=== PATIENT | male | born 1995 | race African-American/Black ===

== ENCOUNTER 2019-01-16 14:01 | Emergency (ER) | payer MEDICAID ==
[~2019-01-16] VITALS: Ht 180.3 cm; Wt 67.5 kg
[2019-01-16 14:10] VITALS: BP 126/58; PULSE 76; RESP 19; Ht 180.3 cm; Wt 67.5 kg
[2019-01-16] MEDS ORDERED: KETOROLAC 60 MG INJ IM STA (15:36)
[2019-01-16] MEDS ORDERED: IBUP-1542 PO (16:28)
[2019-01-16] MEDS ORDERED: CYCL10TA7 PO (16:28)
--- NOTE | 2019-01-16 16:34 | ERD ---
ER Documentation Chief Complaint Chief Complaint LEFT SHOULDER PAIN/INJURY HPI 23-year-old male patient with no significant past medical history presents to the ED complaining of left upper back strain that occurred earlier today while playing bascule. Describes his pain is achy and rates it a 10 out of 10. States that with movement, twisting to the right and left, it worsens his pain. States that he was trying to rebound for the ball, pass and accidentally twisted his back to the left and sustained some pain during this movement. Denies any spinal pain, neck pain, head or neck injuries. Denies any fever, chills, chest pain, shortness of breath, abdominal pain, nausea, vomiting, dysuria, urgency, frequency, hematuria. Denies any saddle anesthesia, urine or bowel incontinence. ROS All systems reviewed and are negative except as per history of present illness. Medications Home Meds Active Scripts Cyclobenzaprine Hcl* (Cyclobenzaprine Hcl*) 10 Mg Tablet, 10 MG PO TID, #15 TAB Prov:HUMBERTO MAHAN PA-C 01/16/19 Ibuprofen* (Motrin*) 600 Mg Tab, 600 MG PO Q6, #30 TAB Prov:HUMBERTO MAHAN PA-C 01/16/19 PMhx/Soc History of Surgery: No Anesthesia Reaction: No Hx Neurological Disorder: No Hx Respiratory Disorders: No Hx Cardiac Disorders: No Hx Psychiatric Problems: No Hx Miscellaneous Medical Probl: No Hx Alcohol Use: No Hx Substance Use: No Hx Tobacco Use: No Smoking Status: Never smoker FmHx Family History: No diabetes, No coronary disease Physical Exam Vitals Vital Signs Date Temp Pulse Resp B/P (MAP) Pulse Ox O2 O2 Flow FiO2 Time Delivery Rate 01/16/19 98.7 76 19 126/58 98 14:10 (80) Physical Exam Const: [id number], well-nourished. In no acute distress. Head: Atraumatic, normocephalic Eyes: Normal Conjunctiva without injection. No purulent discharge. ENT: Normal external ear, nose. Moist oropharynx without tonsillar exudates. Non-erythematous pharynx. Uvula midline. No drooling. No trismus. Neck: No cervical midline tenderness. Full range of motion. No meningismus. No cervical lymphadenopathy. No JVD. Resp: Clear to auscultation bilaterally. No wheezing, rhonchi, rales, or crackles. No accessory muscle use. No retractions. Cardio: Regular rate and rhythm. No murmurs, rubs or gallops. Abd: Soft, nontender, non distended. Normal bowel sounds. No palpable masses. No rebound tenderness. No guarding. Negative McBurney's point. Negative psoas sign. Negative obturator sign. Skin: No petechiae or rashes Back: No midline tenderness. No CVA tenderness. Tender palpation of the left rhomboid muscle. Ext: No cyanosis, or edema. Neur: Awake and alert. Normal gait. Normal coordination. Psych: Normal Mood and Affect Results 24 hrs Current Medications Medications Dose Sig/Uriel Start Time Status Last (Trade) Ordered Route PRN Stop Time Admin Dose Reason Admin Ketorolac 60 mg ONCE STAT 01/16/19 DC 01/16/19 Tromethamine IM 15:36 15:48 (Toradol) 01/16/19 15:37 Procedures/MDM 23-year-old male patient with no significant past medical history presents ED complaining of left upper back pain that started earlier today after playing basketball. Patient is afebrile and nontoxic-appearing. Patient was given a Toradol injection, 60 mg IM with improvement of his pain as well as an ice pack. Patient reports that his pain has improved. Patient has no shortness of breath, pleuritic chest pain - low suspicion for pneumothorax, pleural effusion, pneumonia, atypical MS, arrhythmias or other emergent conditions. Patient likely sustained a rhomboid muscle strain. Tenderness palpation of the clavicle or shoulder as well as elbow. No indication for x-rays at this time. Patient denied wanting any x-rays. Patient is ambulating here in the ED without difficulty. Denies saddle anesthesia, numbness or tingling, urine or bowel incontinence, weakness. Low suspicion for cauda equina syndrome, cord compression, nephrolithiasis, aortic aneurysm, aortic dissection, epidural abscess, spinal hematoma, malignancy, pyelonephritis, or other emergent conditions. Diagnosis: Muscle Strain Discharge medications: Ibuprofen, Flexeril Follow up with primary care physician in 1-2 days. Instructed patient to return to the ED sooner for any worsening symptoms. Patient's questions were answered. Patient is hemodynamically stable. Patient understood and agreed with discharge plan. Patient discharged stable. Disclaimer: Inadvertent spelling and grammatical errors are likely due to EHR/dictation software use and do not reflect on the overall quality of patient care. Also, please note that the electronic time recorded on this note does not necessarily reflect the actual time of the patient encounter. Departure Diagnosis: Primary Impression: Muscle strain Condition: Stable Patient Instructions: Back Basics: A Healthy Spine, Back Care Tips, Back Sprain/Strain Referrals: [facility] YOU HAVE RECEIVED A MEDICAL SCREENING EXAM AND THE RESULTS INDICATE THAT YOU DO NOT HAVE A CONDITION THAT REQUIRES URGENT TREATMENT IN THE EMERGENCY DEPARTMENT. FURTHER EVALUATION AND TREATMENT OF YOUR CONDITION CAN WAIT UNTIL YOU ARE SEEN IN YOUR DOCTORS OFFICE WITHIN THE NEXT 1-2 DAYS. IT IS YOUR RESPONSIBILITY TO MAKE AN APPOINTMENT FOR FOLOW-UP CARE. IF YOU HAVE A PRIMARY DOCTOR --you should call your primary doctor and schedule an appointment IF YOU DO NOT HAVE A PRIMARY DOCTOR YOU CAN CALL OUR PHYSICIAN REFERRAL HOTLINE AT IF YOU CAN NOT AFFORD TO SEE A PHYSICIAN YOU CAN CHOSE FROM THE FOLLOWING [facility] [address] [address] [facility] [address] [facility] [address] [facility] [address] [facility] [address] [facility]. [facility]. [address] [facility]. [facility] YOU HAVE RECEIVED A MEDICAL SCREENING EXAM AND THE RESULTS INDICATE THAT YOU DO NOT HAVE A CONDITION THAT REQUIRES URGENT TREATMENT IN THE EMERGENCY DEPARTMENT. FURTHER EVALUATION AND TREATMENT OF YOUR CONDITION CAN WAIT UNTIL YOU ARE SEEN IN YOUR DOCTORS OFFICE WITHIN THE NEXT 1-2 DAYS. IT IS YOUR RESPONSIBILITY TO MAKE AN APPOINTMENT FOR FOLOW-UP CARE. IF YOU HAVE A PRIMARY DOCTOR --you should call your primary doctor and schedule and appointment IF YOU DO NOT HAVE A PRIMARY DOCTOR YOU CAN CALL OUR PHYSICIAN REFERRAL HOTLINE AT . IF YOU CAN NOT AFFORD TO SEE A PHYSICIAN YOU CAN CHOSE FROM THE FOLLOWING [facility] INSTITUTIONS: [facility] [address] [place] [address] [facility] [address] [place] [address] [facility] + [facility] [address] [place] [address] [facility] URGENT CARE/SPECIALTIES Additional Instructions: Call your primary care doctor TOMORROW for an appointment during the next 2-3 days.See the doctor sooner or return here if your condition worsens before your appointment time. HUMBERTO MAHAN PA-C January 16, 2019 16:34
== END 2019-01-16 16:43 | disposition home or self-care (01) ==
LOC: FTE 14:01
DX: S29.012A Strain of muscle and tendon of back wall of thorax, initial encounter (principal); X50.1XXA Overexertion from prolonged static or awkward postures, initial encounter; Y92.310 Basketball court as the place of occurrence of the external cause
CPT/HCPCS: 96372; J1885